=== PATIENT | male | born 1970 | race Caucasian/White ===

== ENCOUNTER 2017-02-16 10:06 | Emergency (ER) | payer BC ==
[2017-02-16] MEDS ORDERED: IBUPROFEN 400 MG TABLET PO ONE (10:22)
--- NOTE | 2017-02-16 10:26 | Emergency Department Record ---
History of Present Illness - General Chief complaint: Flu Like Symptoms Stated complaint: FLU LIKE SYMPTOMS Time Seen by Provider: 02/16/17 10:22 Source: Patient Mode of Arrival: Ambulatory Limitations: No limitations - History of Present Illness Initial comments: 46 yo male presents to ED for evaluation of fever, non-productive cough symptoms , sinus pressure/drainage, and body aches for the past 5 days. Patient denies any ill contacts, reports that he did not receive a flu vaccine this year. Patient denies abdominal pain, vomiting, or urinary symptoms. Patient denies health problems at his baseline. MD Complaint: Generalized weakness Onset/Timin -: Days(s) Location: Generalized Severity: Moderate Severity scale (1-10): 7 Quality: Aching Improves with: None Worsens with: None Context: Recent illness Associated Symptoms: Denies other symptoms - [place] Coma Scale Eye Response: (4) Open spontaneously Motor Response: (6) Obeys commands Verbal Response: (5) Oriented [place] Total: 15 - Related Data Allergies Allergy/AdvReac Type Severity Reaction Status Date / Time amoxicillin trihydrate AdvReac Mild VOMITING Verified 02/16/17 10:22 [From Augmentin] potassium clavulanate AdvReac Mild VOMITING Verified 02/16/17 10:22 [From Augmentin] Travel Screening - Travel/Exposure Within Last 30 Days Have you traveled within the last 30 days?: No - Travel/Exposure Within Last Year Have you traveled outside the [place] in the last year?: No - Additonal Travel Details Have you been exposed to anyone with a communicable illness?: No - Travel Symptoms Symptom Screening: None Review of Systems Constitutional: Reports: Fever, Malaise, Weakness. Denies: Night sweats Eyes: Denies: Eye discharge, Eye pain ENT: Reports: Congestion. Denies: Ear pain, Epistaxis, Throat pain Respiratory: Reports: Cough. Denies: Dyspnea Cardiovascular: Denies: Chest pain, Dyspnea on exertion Endocrine: Reports: Fatigue. Denies: Heat or cold intolerance Gastrointestinal: Denies: Constipation, Hematemesis, Vomiting Genitourinary: Denies: Retention Musculoskeletal: Reports: Myalgia. Denies: Back pain, Gout Skin: Denies: Bruising, Change in color Neurological: Denies: Abnormal gait, Confusion, Seizure Psychiatric: Denies: Anxiety Hematological/Lymphatic: Denies: Anemia, Blood Clots Past Medical History - SOCIAL HISTORY Smoking Status: Never smoker Alcohol Use: None Drug Use: None - RESPIRATORY Hx Pneumonia: Yes - CARDIOVASCULAR Hx Hypertension: Yes Hx Irregular Heartbeat: Yes Comment:: rheumatic fever as child, murmur - NEURO Hx Headaches: Yes - GI Hx Reflux: Yes Comment:: fatty liver - Hx Genitourinary Disorders: No - ENDOCRINE Hx Diabetes: Yes (type 2) - MUSCULOSKELETAL Hx Arthritis: Yes - PSYCH Hx Psych Problems: No - HEMATOLOGY/ONCOLOGY Hx Hematology/Oncology Disorders: No Family Medical History Any Significant Family History?: Yes Physical Exam - General General Appearance: Alert, Oriented x3, Cooperative, Mild distress Limitations: No limitations - Head Head exam: Atraumatic, Normocephalic, Normal inspection Head exam detail: negative: Abrasion, Contusion, Faust's sign, General tenderness, Hematoma, Laceration - Eye Eye exam: Normal appearance. negative: Conjunctival injection, Periorbital swelling, Periorbital tenderness, Scleral icterus - ENT Ear exam: negative: Auricular hematoma, Auricular trauma Nasal Exam: negative: Active bleeding, Discharge, Dried blood, Foreign body Mouth exam: negative: Drooling, Laceration, Muffled voice, Tongue elevation - Neck Neck exam: Normal inspection. negative: Meningismus, Tenderness - Respiratory Respiratory exam: Normal lung sounds bilaterally. negative: Rales, Respiratory distress, Rhonchi, Stridor - Cardiovascular Cardiovascular Exam: Regular rate, Normal rhythm, Normal heart sounds - GI/Abdominal GI/Abdominal exam: Soft. negative: Rebound, Rigid, Tenderness - Rectal Rectal exam: Deferred - exam: Deferred - Extremities Extremities exam: Normal inspection. negative: Calf tenderness, Pedal edema, Tenderness - Back Back exam: Denies: CVA tenderness (R), CVA tenderness (L) - Neurological Neurological exam: Alert, Normal gait, Oriented X3 - Psychiatric Psychiatric exam: Normal affect, Normal mood - Skin Skin exam: Normal color. negative: Abrasion Type of lesion: negative: abrasion Course Vital Signs 02/16/17 10:09 Temperature 100.5 F H Pulse Rate 101 H Respiratory 16 Rate Blood Pressure 135/91 Pulse Ox 97 - Reevaluation(s) Reevaluation #1: 02/16/17 10:59 Influenza appears negative on examination. Reevaluation #2: 02/16/17 11:16 CXR: No acute process. Reevaluation #3: 02/16/17 11:19 patient updated on all results, denies sore throat symptoms, urinary symptoms, or abdominal pain symptoms. Patient has no other obvious source for bacterial illness on examination. Patient was reassessed, reports that he is feeling improved following Motrin, appears stable for discharge with continued symptomatic care as needed. Disposition Disposition: Discharge Clinical Impression: Viral syndrome Disposition: Home, Self-Care Condition: (2) Stable Instructions: Viral Syndrome (ED) Additional Instructions: Return to ED if your symptoms worsen or if you have any concerns. Continued Motrin and Tylenol as directed. Follow-up with you family doctor in 1-3 days as directed. Forms: Patient Portal Access Time of Disposition: 11:21 Quality - Quality Measures Quality Measures: N/A - Blood Pressure Screening Does Patient Have Any of the Following: No Blood Pressure Classification: Hypertensive Reading Systolic Measurement: 135 Diastolic Measurement: 91 Screening for High Blood Pressure: < First Hypertensive BP, F/U Documented > [ [id number]] First Hypertensive Follow-up Interventions: Referral to alternative/primary care provider.
[2017-02-16 10:50] LABS: INFLUENZA A NEGATIVE (NEGATIVE); INFLUENZA B NEGATIVE (NEGATIVE)
--- NOTE | 2017-02-18 00:29 | RADIOLOGY REPORT ---
EXAM: CHEST 2 VIEWS HISTORY: COUGH, FEVER, AND BODY ACHES. TECHNIQUE: PA and lateral upright views of the chest were obtained. COMPARISON: None. FINDINGS: The heart, mediastinum, and pulmonary vasculature are normal. There are no acute infiltrates or effusions. There is no pneumothorax. The bones appear intact. IMPRESSION: NO ACUTE CHEST PATHOLOGY. JOB NUMBER: [id number] MTDD
== END 2017-02-16 11:24 | disposition home or self-care (01) ==
LOC: ER 10:06
DX: B34.9 Viral infection, unspecified (principal); R05 Cough; R53.1 Weakness; R50.81 Fever presenting with conditions classified elsewhere; E11.9 Type 2 diabetes mellitus without complications
CPT/HCPCS: 71020; 87400; 99283; 99284

== ENCOUNTER 2019-01-08 14:19 | Emergency (ER) | payer BC ==
[2019-01-08 15:13] LABS: URINE APPEARANCE SL CLOUDY; URINE BILIRUBIN NEGATIVE (NEGATIVE); URINE BLOOD LARGE (NEGATIVE); URINE COLOR YELLOW; URINE KETONE NEGATIVE (NEGATIVE); URINE LEUKOCYTE ESTERASE NEGATIVE (NEGATIVE); URINE NITRITE NEGATIVE (NEGATIVE); URINE PROTEIN NEGATIVE (NEGATIVE); URINE UROBILINOGEN 0.2 E.U./dL (0.20 - 1.00)
[2019-01-08] MEDS ORDERED: 0.9 % SODIUM CHLORIDE 1,000 ML BAG IV ONE (15:18)
[2019-01-08] MEDS ORDERED: KETOROLAC 30 MG/ML VIAL IVP ONE (15:18)
[2019-01-08 15:21] LABS: URINE EPITHELIAL CELLS NONE SEEN (FEW); URINE WBC NONE SEEN (0-2/hpf)
[2019-01-08 15:43] LABS: BASO % 0.6 % (0-6); EOS % 2.3 % (0-6); GRAN % 65.8 % (47-80); HEMATOCRIT 47.6 % (42.0-52.0); LYMPH % 22.4 % (16-45); MEAN CELL VOLUME 82.4 fl (81-97); MEAN CORPUSCULAR HGB CONC 33.6 g/dl (32-36); MEAN PLATELET VOLUME 9.7 fl (7.4-10.4); MONO % 8.9 % (0-9); PLATELET COUNT 244 K/uL (130-400); RED BLOOD COUNT 5.78 M/uL (4.40-5.70); RED CELL DISTRIBUTION WIDTH 13.5 % (11.5-14.5); WHITE BLOOD COUNT W/O DIFF 5.2 K/uL (4.2-12.2)
[2019-01-08 15:44] LABS: MEAN CORPUSCULAR HEMOGLOBIN 27.6 pg (27-33)
[2019-01-08 15:58] LABS: BLOOD UREA NITROGEN 14 mg/dL (6-20); EST GLOMERULAR FILTRATION RATE > 60 mL/min
[2019-01-08 16:01] LABS: GLUCOSE,RANDOM 80 mg/dL (74-109)
--- NOTE | 2019-01-08 16:01 | CT SCAN REPORT ---
EXAMINATION: CT Abdomen and Pelvis without IV Contrast EXAM DATE: 01/08/2019 3:52 PM TECHNIQUE: Standard protocol CT imaging of the abdomen and pelvis was performed without intravenous c ontrast. INDICATION: llq pain COMPARISON: None ENCOUNTER: Not applicable CT ABDOMEN AND PELVIS FINDINGS: Lung Bases: Included extent of the lung bases are clear. Hepatobiliary: The liver has a normal size with a smooth surface. There is no biliary dilatation and the gallbladder is unremarkable. Pancreas: The pancreas is normal. Spleen: The spleen is not enlarged. Adrenals: The adrenal glands are normal. Kidneys, Ureters, & Bladder: Both kidneys have a normal size and morphology. There is no hydronephro sis. There is a 2 mm calculus in the proximal left ureter with minimal proximal hydronephrosis beyond the calculus, both ureters are unremarkable. The bladder is normal Gastrointestinal: The stomach and small bowel are normal with no obstruction or inflammation. The lar ge bowel is within normal limits. Reproductive Organs: There is an incompletely descended testis on the right in the distal canal Lymphatic System: There is no adenopathy within the abdomen or pelvis. Vasculature: Normal caliber abdominal aorta Peritoneum: No free fluid, free air, or inflammation Abdominal wall & Musculoskeletal: No suspicious bone lesions. Assessment of the solid organs, soft tissues, and vascular structures is overall limited on noncontra st imaging, IMPRESSION: 1. Mildly obstructing proximal left ureteral 2 mm calculus 2. Incompletely descended right testicle Dictated by: Brian Arora MD on 01/08/2019 3:55 PM. .
--- NOTE | 2019-01-08 16:02 | Emergency Department Record ---
History of Present Illness - General Chief complaint: Male Urogenital Problem Stated complaint: KIDNEY PAIN Time Seen by Provider: 01/08/19 15:16 Source: Patient Mode of Arrival: Ambulatory Limitations: No limitations - History of Present Illness Initial comments: pt developed llq ap that radiates to his flank and has blood in his urine. he has not had this happen before MD Complaint: Other Onset/Timin -: Hour(s) Location: Abdomen Radiation: LLQ Severity: Moderate Severity scale (1-10): 5 Quality: Other Consistency: Constant Improves with: None Worsens with: None Reports: Blood in urine - Related Data Previous Rx's Medication Instructions Recorded Hydrocodone/Acetaminophen [[place] 1 each PO Q6HR #10 tablet 01/08/19 5-325 Tablet] Tamsulosin HCl [Flomax] 0.4 mg PO DAILY #7 cap.er.24h 01/08/19 Allergies Allergy/AdvReac Type Severity Reaction Status Date / Time amoxicillin trihydrate AdvReac Mild VOMITING Verified 01/08/19 14:50 [From Augmentin] potassium clavulanate AdvReac Mild VOMITING Verified 01/08/19 14:50 [From Augmentin] Travel Screening - Travel/Exposure Within Last 30 Days Have you traveled within the last 30 days?: Yes Location Detail:: [place] - Travel/Exposure Within Last Year Have you traveled outside the [place] in the last year?: No - Additonal Travel Details Have you been exposed to anyone with a communicable illness?: No - Travel Symptoms Symptom Screening: None Review of Systems Reviewed: No additional complaints except as noted below Constitutional: Reports: As per HPI. Denies: Chills, Fever, Malaise, Night sweats, Weakness, Weight change Eyes: Reports: As per HPI. Denies: Eye discharge, Eye pain, Photophobia, Vision change ENT: Reports: As per HPI. Denies: Congestion, Dental pain, Ear pain, Epistaxis, Hearing loss, Throat pain Respiratory: Reports: As per HPI. Denies: Cough, Dyspnea, Hemoptysis, Stridor, Wheezes Cardiovascular: Reports: As per HPI. Denies: Arrhythmia, Chest pain, Dyspnea on exertion, Edema, Murmurs, Orthopnea, Palpitations, Paroxysmal nocturnal dyspnea, Rheumatic Fever, Syncope Endocrine: Reports: As per HPI. Denies: Fatigue, Heat or cold intolerance, Polydipsia, Polyuria Gastrointestinal: Reports: As per HPI, Abdominal pain. Denies: Constipation, Diarrhea, Hematemesis, Hematochezia, Melena, Nausea, Vomiting Genitourinary: Reports: As per HPI, Hematuria. Denies: Dysuria, Frequency, Incontinence, Retention, Testicular pain, Testicular mass, Urgency Musculoskeletal: Reports: As per HPI. Denies: Arthralgia, Back pain, Gout, Joint swelling, Myalgia, Neck pain Skin: Reports: As per HPI. Denies: Bruising, Change in color, Change in hair/nails, Lesions, Pruritus, Rash Neurological: Reports: As per HPI. Denies: Abnormal gait, Confusion, Headache, Numbness, Paresthesias, Seizure, Tingling, Tremors, Vertigo, Weakness Psychiatric: Reports: As per HPI. Denies: Anxiety, Auditory hallucinations, Depression, Homicidal thoughts, Suicidal thoughts, Visual hallucinations Hematological/Lymphatic: Reports: As per HPI. Denies: Anemia, Blood Clots, Easy bleeding, Easy bruising, Swollen glands Past Medical History - SOCIAL HISTORY Smoking Status: Never smoker Alcohol Use: None Drug Use: None - RESPIRATORY Hx Respiratory Disorders: Yes Hx Pneumonia: Yes - CARDIOVASCULAR Hx Cardio Disorders: Yes Hx Hypertension: Yes Hx Irregular Heartbeat: Yes Comment:: rheumatic fever as child, murmur - NEURO Hx Neuro Disorders: Yes Hx Headaches: Yes - GI Hx GI Disorders: Yes Hx Reflux: Yes Comment:: fatty liver - Hx Genitourinary Disorders: No - ENDOCRINE Hx Endocrine Disorders: Yes Hx Diabetes: Yes (type 2) - MUSCULOSKELETAL Hx Musculoskeletal Disorders: Yes Hx Arthritis: Yes - PSYCH Hx Psych Problems: No - HEMATOLOGY/ONCOLOGY Hx Hematology/Oncology Disorders: No Family Medical History Any Significant Family History?: Yes Hx Cancer: Brother/Sister Hx Diabetes: Mother, Children, Grandparents Hx Heart Disease: Father Physical Exam - General General Appearance: Alert, Oriented x3, Cooperative, Mild distress - Head Head exam: Normal inspection - Eye Eye exam: Normal appearance, PERRL, EOMI Pupils: Normal accommodation - ENT ENT exam: Normal exam, Mucous membranes moist, Normal external ear exam, Normal orophraynx Ear exam: Normal external inspection. negative: External canal tenderness Nasal Exam: Normal inspection. negative: Discharge, Sinus tenderness Mouth exam: Normal external inspection, Tongue normal Teeth exam: Normal inspection. negative: Dental caries Throat exam: Normal inspection. negative: Tonsillar erythema, Tonsillar exudate - Neck Neck exam: Normal inspection, Full ROM. negative: Tenderness - Respiratory Respiratory exam: Normal lung sounds bilaterally. negative: Respiratory distress - Cardiovascular Cardiovascular Exam: Regular rate, Normal rhythm, Normal heart sounds - GI/Abdominal GI/Abdominal exam: Soft, Normal bowel sounds, Tenderness - Rectal Rectal exam: Deferred - exam: Deferred - Extremities Extremities exam: Normal inspection, Full ROM, Normal capillary refill. negative: Tenderness - Back Back exam: Reports: Normal inspection, Full ROM. Denies: Muscle spasm, Rash noted, Tenderness - Neurological Neurological exam: Alert, CN II-XII intact, Normal gait, Oriented X3 - Psychiatric Psychiatric exam: Normal affect, Normal mood - Skin Skin exam: Dry, Intact, Normal color, Warm Course Vital Signs 01/08/19 14:52 Temperature 98.7 F Pulse Rate 79 Respiratory 18 Rate Blood Pressure 156/104 Pulse Ox 98 - Reevaluation(s) Reevaluation #1: 01/08/19 16:25 ct show 2mm partially obstructing stone in proximal ureter Medical Decision Making - Lab Data Result diagrams: 01/08/19 15:30 01/08/19 15:30 Lab Results 01/08/19 01/08/19 Range/Units 15:00 15:30 WBC 5.2 (4.2-12.2) K/uL RBC 5.78 H (4.40-5.70) M/uL Hgb 16.0 (14.0-18.0) gm/dl Hct 47.6 (42.0-52.0) % MCV 82.4 (81-97) fl MCH 27.6 (27-33) pg MCHC 33.6 (32-36) g/dl RDW 13.5 (11.5-14.5) % Plt Count 244 (130-400) K/uL MPV 9.7 (7.4-10.4) fl Gran % 65.8 (47-80) % Lymphocytes % 22.4 (16-45) % Monocytes % 8.9 (0-9) % Eosinophils % 2.3 (0-6) % Basophils % 0.6 (0-6) % Absolute Neutrophils 3.40 Urine Color Yellow Urine Appearance Sl cloudy Urine pH 5.5 (5.0-8.0) Ur Specific [place] 1.025 (1.002-1.030) Urine Protein Negative (NEGATIVE) Urine Glucose (UA) 500 mg/dl H (NEGATIVE) Urine Ketones Negative (NEGATIVE) Urine Blood Large H (NEGATIVE) Urine Nitrite Negative (NEGATIVE) Urine Bilirubin Negative (NEGATIVE) Urine Urobilinogen 0.2 (0.20 - 1.00) E.U./dL Ur Leukocyte Esterase Negative (NEGATIVE) Urine RBC Too numerous to cnt (NONE SEEN) Urine WBC None seen (0-2/hpf) Ur Epithelial Cells None seen (FEW) Disposition Disposition: Discharge Clinical Impression: Renal lithiasis Disposition: Home, Self-Care Condition: (1) Good Instructions: Kidney Stones (ED), How to Strain Your Urine (ED) Additional Instructions: follow up with urologist. return sooner if worse. push fluids. Prescriptions: Hydrocodone/Acetaminophen [[place] 5-325 Tablet] 1 each PO Q6HR #10 tablet Tamsulosin HCl [Flomax] 0.4 mg PO DAILY #7 cap.er.24h Forms: Patient Portal Access Quality - Quality Measures Quality Measures: N/A - Blood Pressure Screening Does Patient Have Any of the Following: Active Dx of HTN Blood Pressure Classification: Hypertensive Reading Systolic Measurement: 156 Diastolic Measurement: 104 Screening for High Blood Pressure: Patient Exclusion, Hx of HTN [G9744]
--- NOTE | 2019-01-08 16:37 | Emergency Department Record ---
History of Present Illness - General Chief complaint: Male Urogenital Problem Stated complaint: KIDNEY PAIN Time Seen by Provider: 01/08/19 15:16 Source: Patient Mode of Arrival: Ambulatory Limitations: No limitations - History of Present Illness Onset/Timin -: Hour(s) Location: Abdomen Radiation: LLQ Severity: Moderate Severity scale (1-10): 5 Quality: Other Consistency: Constant Improves with: None Worsens with: None Reports: Blood in urine - Related Data Previous Rx's Medication Instructions Recorded Hydrocodone/Acetaminophen [[place] 1 each PO Q6HR #10 tablet 01/08/19 5-325 Tablet] Tamsulosin HCl [Flomax] 0.4 mg PO DAILY #7 cap.er.24h 01/08/19 Allergies Allergy/AdvReac Type Severity Reaction Status Date / Time amoxicillin trihydrate AdvReac Mild VOMITING Verified 01/08/19 14:50 [From Augmentin] potassium clavulanate AdvReac Mild VOMITING Verified 01/08/19 14:50 [From Augmentin] Travel Screening - Travel/Exposure Within Last 30 Days Have you traveled within the last 30 days?: Yes Location Detail:: [place] - Travel/Exposure Within Last Year Have you traveled outside the [place] in the last year?: No - Additonal Travel Details Have you been exposed to anyone with a communicable illness?: No - Travel Symptoms Symptom Screening: None Review of Systems Constitutional: Reports: As per HPI. Denies: Chills, Fever, Malaise, Night sweats, Weakness, Weight change Eyes: Reports: As per HPI. Denies: Eye discharge, Eye pain, Photophobia, Vision change ENT: Reports: As per HPI. Denies: Congestion, Dental pain, Ear pain, Epistaxis, Hearing loss, Throat pain Respiratory: Reports: As per HPI. Denies: Cough, Dyspnea, Hemoptysis, Stridor, Wheezes Cardiovascular: Reports: As per HPI. Denies: Arrhythmia, Chest pain, Dyspnea on exertion, Edema, Murmurs, Orthopnea, Palpitations, Paroxysmal nocturnal dyspnea, Rheumatic Fever, Syncope Endocrine: Reports: As per HPI. Denies: Fatigue, Heat or cold intolerance, Polydipsia, Polyuria Gastrointestinal: Reports: As per HPI, Abdominal pain. Denies: Constipation, Diarrhea, Hematemesis, Hematochezia, Melena, Nausea, Vomiting Genitourinary: Reports: As per HPI, Hematuria. Denies: Dysuria, Frequency, Incontinence, Retention, Testicular pain, Testicular mass, Urgency Musculoskeletal: Reports: As per HPI. Denies: Arthralgia, Back pain, Gout, Joint swelling, Myalgia, Neck pain Skin: Reports: As per HPI. Denies: Bruising, Change in color, Change in hair/nails, Lesions, Pruritus, Rash Neurological: Reports: As per HPI. Denies: Abnormal gait, Confusion, Headache, Numbness, Paresthesias, Seizure, Tingling, Tremors, Vertigo, Weakness Psychiatric: Reports: As per HPI. Denies: Anxiety, Auditory hallucinations, Depression, Homicidal thoughts, Suicidal thoughts, Visual hallucinations Hematological/Lymphatic: Reports: As per HPI. Denies: Anemia, Blood Clots, Easy bleeding, Easy bruising, Swollen glands Past Medical History - SOCIAL HISTORY Smoking Status: Never smoker Alcohol Use: None Drug Use: None - RESPIRATORY Hx Respiratory Disorders: Yes Hx Pneumonia: Yes - CARDIOVASCULAR Hx Cardio Disorders: Yes Hx Hypertension: Yes Hx Irregular Heartbeat: Yes Comment:: rheumatic fever as child, murmur - NEURO Hx Neuro Disorders: Yes Hx Headaches: Yes - GI Hx GI Disorders: Yes Hx Reflux: Yes Comment:: fatty liver - Hx Genitourinary Disorders: No - ENDOCRINE Hx Endocrine Disorders: Yes Hx Diabetes: Yes (type 2) - MUSCULOSKELETAL Hx Musculoskeletal Disorders: Yes Hx Arthritis: Yes - PSYCH Hx Psych Problems: No - HEMATOLOGY/ONCOLOGY Hx Hematology/Oncology Disorders: No Family Medical History Any Significant Family History?: Yes Hx Cancer: Brother/Sister Hx Diabetes: Mother, Children, Grandparents Hx Heart Disease: Father Physical Exam - General Limitations: No limitations Course Vital Signs 01/08/19 14:52 Temperature 98.7 F Pulse Rate 79 Respiratory 18 Rate Blood Pressure 156/104 Pulse Ox 98 Medical Decision Making - Lab Data Result diagrams: 01/08/19 15:30 01/08/19 15:30 Lab Results 01/08/19 01/08/19 01/08/19 Range/Units 15:00 15:30 15:30 WBC 5.2 (4.2-12.2) K/uL RBC 5.78 H (4.40-5.70) M/uL Hgb 16.0 (14.0-18.0) gm/dl Hct 47.6 (42.0-52.0) % MCV 82.4 (81-97) fl MCH 27.6 (27-33) pg MCHC 33.6 (32-36) g/dl RDW 13.5 (11.5-14.5) % Plt Count 244 (130-400) K/uL MPV 9.7 (7.4-10.4) fl Gran % 65.8 (47-80) % Lymphocytes % 22.4 (16-45) % Monocytes % 8.9 (0-9) % Eosinophils % 2.3 (0-6) % Basophils % 0.6 (0-6) % Absolute Neutrophils 3.40 Sodium 141 (136-145) mmol/L Potassium 4.0 (3.4-4.5) mmol/L Chloride 102 (98-107) mmol/L Carbon Dioxide 26.0 (22-29) mmol/L Anion Gap 13.0 (7-16) BUN 14 (6-20) mg/dL Creatinine 1.0 (0.7-1.2) mg/dL Estimated GFR > 60 mL/min Random Glucose 80 (74-109) mg/dL Calcium 9.8 (8.6-10.0) mg/dL Urine Color Yellow Urine Appearance Sl cloudy Urine pH 5.5 (5.0-8.0) Ur Specific [place] 1.025 (1.002-1.030) Urine Protein Negative (NEGATIVE) Urine Glucose (UA) 500 mg/dl H (NEGATIVE) Urine Ketones Negative (NEGATIVE) Urine Blood Large H (NEGATIVE) Urine Nitrite Negative (NEGATIVE) Urine Bilirubin Negative (NEGATIVE) Urine Urobilinogen 0.2 (0.20 - 1.00) E.U./dL Ur Leukocyte Esterase Negative (NEGATIVE) Urine RBC Too numerous to cnt (NONE SEEN) Urine WBC None seen (0-2/hpf) Ur Epithelial Cells None seen (FEW) Disposition Disposition: Discharge Clinical Impression: Renal lithiasis Disposition: Home, Self-Care Condition: (1) Good Instructions: Kidney Stones (ED), How to Strain Your Urine (ED) Additional Instructions: follow up with urologist. return sooner if worse. push fluids. Prescriptions: Hydrocodone/Acetaminophen [[place] 5-325 Tablet] 1 each PO Q6HR #10 tablet Tamsulosin HCl [Flomax] 0.4 mg PO DAILY #7 cap.er.24h Referrals: Guanaco Hay M.D. [MEDICAL DOCTOR] - [facility] [Provider Group] Forms: Patient Portal Access Quality - Quality Measures Quality Measures: N/A - Blood Pressure Screening Does Patient Have Any of the Following: Active Dx of HTN Blood Pressure Classification: Hypertensive Reading Systolic Measurement: 156 Diastolic Measurement: 104 Screening for High Blood Pressure: Patient Exclusion, Hx of HTN [G9744]
== END 2019-01-08 16:51 | disposition home or self-care (01) ==
LOC: ER 14:19
DX: N20.1 Calculus of ureter (principal); I10 Essential (primary) hypertension
CPT/HCPCS: 99284 ×2; 96374; 85025; 80048; 81001; 74176; J1885; J7030